=== PATIENT | female | born 1980 | race Caucasian/White ===

== ENCOUNTER 2017-09-17 22:26 | Emergency (ER) | payer MEDICAID ==
[~2017-09-17 22:26] MED LIST: EXCEDRIN; TYLENOL
== END 2017-09-17 22:55 | disposition left against medical advice (07) ==
LOC: ER 22:26
DX: R06.02 Shortness of breath (principal); R10.9 Unspecified abdominal pain; Z53.21 Procedure and treatment not carried out due to patient leaving prior to being seen by health care provider